=== PATIENT | female | born 1965 | race Caucasian/White ===

== ENCOUNTER → 2020-12-16 12:47 | Outpatient (CLI) | payer BC, SELFPAY ==
--- NOTE | ~2020-12-16 | MR_ITS ---
EXAMINATION: MR knee LT wo con DATE: 12/16/2020 13:41 INDICATION: Left knee pain TECHNIQUE: Magnetic resonance imaging (MRI) of the left knee was performed without intravenous contra st. Sequences included coronal PD-weighted FSE, coronal PD-weighted FS FSE, sagittal T2-weighted FSE , sagittal PD-weighted FS FSE and axial PD weighted fat saturated FSE. COMPARISON: 10/03/2020 FINDINGS: Medial compartment: Full-thickness radial tear/avulsion at the posterior root of the medial meniscus with 12 mm distracti on. Partial-thickness cartilage loss at the anterior weightbearing medial femoral condyle and more se verely at the central weightbearing medial femoral condyle where it involves greater than 50% of the cartilage thickness. Additional mild partial thickness cartilage loss but with deep fissuring along t he posterior weightbearing medial femoral condyle. Partial thickness cartilage loss along the medial margin of the medial tibial plateau. Lateral compartment: Lateral meniscus is normal. Small region of deep chondral ulceration with underlying tiny central sub chondral osteophyte at the central weightbearing medial femoral condyle. Partial thickness chondral f issuring at the anteromedial aspect of the lateral tibial plateau. Patellofemoral compartment: Scattered mild partial-thickness cartilage loss with chondral fissuring and surface regular date thro ughout the patellofemoral compartment with more focal deep chondral ulceration without degenerative s ubchondral changes at the central aspect of the patellar apical ridge. Ligaments and tendons: There is thickening and irregular increased intrasubstance signal in the proximal anterior cruciate l igament with more homogeneous signal with loss of the striated architecture in the distal anterior cr uciate ligament. The ligament appears to follow a shallower angle than Blumenstaat's line with some p osterior bowing suggesting laxity and at least partial tear. There is a thickening of the anterior cr uciate ligament with increased intrasubstance signal proximally at its femoral insertion also consist ent with at least partial tear. The medial collateral ligament is normal. There is thickening and inc reased signal of the proximal fibular collateral ligament without surrounding edema consistent with s carring related to chronic sprain. There are bands of magic angle artifact extending across the other metcalf normal patellar tendon. The quadriceps tendon is normal. The visualized medial and lateral hamst ring tendons as well as the iliotibial band are normal. Fluid: Small to moderate-sized left knee joint effusion. Suprapatellar plical band. Large Beckham's cyst measu ring 5.5 x 2.2 x 3.1 cm. No loose osteochondral bodies identified. Osseous/other: Bone alignment is normal. There is an approximately 1.6 x 1.1 x 0.9 cm region of increased PD weighte d signal at the medial femoral condyle along the intercondylar notch which appears centered over the footplate of the posterior cruciate ligament. There does appear to be signal loss on the fat-saturate d versus the nonfat-saturated images however there is some technical difference in the TR values betw een the fat-saturated and nonfat saturated images which somewhat limits evaluation. There is some pat chanelle red marrow reexpansion in the distal metadiaphyseal region of the distal femur and to lesser degr ee proximal tibia. No fracture. IMPRESSION: 1. Full-thickness radial tear/avulsion at the posterior root of the medial meniscus. 2. At least partial tears of the anterior and posterior cruciate ligaments as well as scarring consis tent with chronic sprain of the proximal fibular collateral ligament. 3. Mild osteoarthritis with extensive moderate grade chondromalacia throughout all 3 compartments of the knee with small region of high-grade chondromalacia along the weightbearing lateral femoral condy le.
== END ==
PROVIDERS: PCP Family Medicine Adolescent Medicine; Visit Provider Nurse Practitioner Family
DX: M25.462 Effusion, left knee (principal); M17.12 Unilateral primary osteoarthritis, left knee; S83.242A Other tear of medial meniscus, current injury, left knee, initial encounter; S83.512A Sprain of anterior cruciate ligament of left knee, initial encounter; S83.522A Sprain of posterior cruciate ligament of left knee, initial encounter; X58.XXXA Exposure to other specified factors, initial encounter
CPT/HCPCS: 73721

== ENCOUNTER → 2021-01-07 00:21 | Outpatient (CLI) | payer BC, SELFPAY ==
[2021-01-07 21:22] LABS: SARS-CoV-2 RNA PCR Negative
== END ==
PROVIDERS: PCP Family Medicine Adolescent Medicine; Visit Provider Internal Medicine Gastroenterology
DX: Z01.812 Encounter for preprocedural laboratory examination (principal); Z20.822 Contact with and (suspected) exposure to COVID-19
CPT/HCPCS: C9803; U0003; U0005

== ENCOUNTER 2021-01-11 07:08 | Day surgery (SDC) | payer BC, SELFPAY ==
[2020-12-29 13:16] VITALS: BMI 42.1
[2021-01-11 12:13] VITALS: BP 142/84; PULSE 102; RESP 22; TEMP 36.4; O2SAT 100; BMI 43.1
[2021-01-11] MEDS: LACTATED RINGERS 1,000 ML 150 ML IV CONT (12:22)
--- NOTE | 2021-01-11 12:50 | WPDANESEPPF ---
Anes - Initial Pre Proc Eval Procedure: Operation Date: 01/11/21 13:00 Proposed Procedures p Esophagogastroduodenoscopy & Screening Colonoscopy - Cezar Walker MD Date/Time: 01/11/21 12:50 Surgeon: Cezar Walker MD Pre Op Diagnosis: neoplasm screening, Dysphagia Patient Data Age: 55 Gender: F Height: 1.57 m Weight: 107 kg Last Vital Signs Temp 36.4 C L 01/11/21 12:13 Pulse 102 H 01/11/21 12:13 Resp 22 H 01/11/21 12:13 BP 142/84 H 01/11/21 12:13 Pulse Ox 100 01/11/21 12:13 Allergies Allergy/AdvReac Type Severity Reaction Status Date / Time egg Allergy Unknown Rash Verified 01/11/21 12:12 latex Allergy Unknown Rash Verified 01/11/21 12:12 Home Medications Medication Instructions Recorded Confirmed Type lisinopril 20 mg tablet 20 mg PO DAILY 10/03/20 12/29/20 History tramadol 50 mg tablet 50 mg PO Q4H PRN 10/03/20 12/29/20 History Patient hx anesthesia problems: none Family hx anesthesia problems: none PMFSH Past Medical History Medical History Arthritis BMI greater than 40 Claustrophobia Effusion, left knee Encounter for screening colonoscopy HTN (hypertension) Left knee DJD Left knee pain Medial meniscus tear PCL injury Psoriasis Wears glasses Weight gain Surgical History Surgical History History of History of carpal tunnel surgery History of cholecystectomy History of knee surgery History of surgery Uterine Tumor 2018 Social History Social History Smoking status: Never smoker Alcohol intake: current Drinks per week: 1 Alcohol use details: 2 per month Substance use: never Substance use type: does not use Living arrangements: with family Gender identity (if verbalized by the patient): Female Spiritual care concerns: No Anes - Eval Final PreProcedure Day of Procedure 01/11/21 12:50 Patient weight: morbidly obese Heart: regular rate and rhythm Lungs: clear to auscultation Airway: Mallampati scale class III Neurological: alert and oriented Last oral intake: >/= 8 hours ASA classification: III Emergent: no Anesthetic plan: proceed Anesthesia type and monitoring: general GIVS and standard monitoring Informed Consent: The patient's anesthetic plan and its attendant risks and benefits were discussed with the patient/family/POA. Questions were solicited and answers provided to the satisfaction of the patient/family/POA.
--- NOTE | 2021-01-11 13:01 | WPDHPUPDATE1 ---
History and Physical Update Update Date/Time: 01/11/21 13:01 History and Physical has been reviewed, including an updated exam of the patient. There are NO changes in the patient's condition. Risks, benefits, and alternatives have been discussed and questions answered. Patient agrees to proceed with procedure.
--- NOTE | 2021-01-11 13:21 | SUR.OPER ---
EGD ENDED 131, COLON STARTED 1320
[2021-01-11 13:34] VITALS: BP 103/71; PULSE 84; RESP 33; O2SAT 100
[2021-01-11 13:44] VITALS: BP 112/68; PULSE 80; RESP 20; O2SAT 100
[2021-01-11 13:54] VITALS: BP 122/64; PULSE 78; RESP 18; O2SAT 100
== END 2021-01-11 14:12 | disposition home or self-care (01) ==
PROVIDERS: PCP Family Medicine Adolescent Medicine; Visit Provider Internal Medicine Gastroenterology
PROC: 0DJ08ZZ Inspection of Upper Intestinal Tract, Via Natural or Artificial Opening Endoscopic (ICD-10-PCS; CPT 43235; principal; 2021-01-11 13:00)
DX: C16.0 Malignant neoplasm of cardia (principal); Z12.11 Encounter for screening for malignant neoplasm of colon; K57.30 Diverticulosis of large intestine without perforation or abscess without bleeding; K64.8 Other hemorrhoids; I10 Essential (primary) hypertension; L40.9 Psoriasis, unspecified; E66.01 Morbid (severe) obesity due to excess calories; Z68.41 Body mass index [BMI] 40.0-44.9, adult
CPT/HCPCS: 45378; 43239; 88305; 88342; J2704; J7120

== ENCOUNTER 2021-01-18 08:37 | Outpatient (CLI) | payer BC, SELFPAY ==
--- NOTE | ~2021-01-18 | CT_ITS ---
EXAMINATION: CT chest abdomen pelvis w con DATE: 01/18/2021 09:11 INDICATION: Large mass in the gastroesophageal junction and esophagus TECHNIQUE: Computed tomography (CT) of the chest, abdomen, and pelvis was performed without intraveno us contrast. Automated exposure control and iterative reconstruction technique were employed. Exam do se: 1665.81 mGy-cm total exam DLP. COMPARISON: None FINDINGS: CHEST CT: No pulmonary infiltrate or consolidation or pulmonary mass lesion. Calcified lingular granuloma and calcified left hilar nodes consistent with old pulmonary granulomato us disease. Normal heart size. Coronary artery calcifications. No thoracic aortic aneurysm or dissection. 9.5 x 16 mm right paratracheal lymph node. Up to 10 mm lower paraesophageal lymph nodes. Small sliding hiatal hernia. ABDOMEN/PELVIS CT: There is soft tissue fullness in the esophagogastric area which may be due to gastric carcinoma or es ophageal carcinoma at the esophagogastric junction. There is up up to 12 x 15 mm gastrohepatic lymphadenopathy. There is peripancreatic and gaby hepatis lymphadenopathy. There are at least five ill-defined up to 1.8 cm hypoattenuating hepatic lesions, most consistent wit h hepatic metastases. Fat containing umbilical hernia. Additional fat containing ventral abdominal wall hernias. Status post cholecystectomy. Normal appendix. No bowel obstruction or intraperitoneal free air. Normal caliber of the abdominal aorta. Diverticulosis of the colon; no CT evidence of diverticulitis. Normal appendix. No bowel obstruction or intraperitoneal free air. Diffuse idiopathic skeletal hyperostosis. Degenerative change of the lumbar spine. No suspicious osteolytic or osteosclerotic lesions. IMPRESSION: Gastroesophageal junction mass lesion, consistent with gastric or esophageal cancer Metastatic lower left paraesophageal, gastrohepatic, peripancreatic, gaby hepatic lymphadenopathy Hepatic metastases Reviewed, dictated and finalized at [facility]. Reviewed, dictated and finalized at [facility]. IMPRESSION: Gastroesophageal junction mass lesion, consistent with gastric or esophageal cancer Metastatic lower left paraesophageal, gastrohepatic, peripancreatic, gaby hepa tic lymphadenopathy Hepatic metastases
[2021-01-18 09:03] LABS: Estimated Glomerular Filt Rate > 60
== END 2021-01-18 08:38 | disposition home or self-care (01) ==
LOC: ANHIMG 08:39
PROVIDERS: PCP Family Medicine Adolescent Medicine; Visit Provider Internal Medicine Gastroenterology
DX: K31.89 Other diseases of stomach and duodenum (principal); R13.10 Dysphagia, unspecified; K76.0 Fatty (change of) liver, not elsewhere classified
CPT/HCPCS: 71260; 74177; Q9967